=== PATIENT | female | born 1950 | race Caucasian/White ===

== ENCOUNTER → 2018-08-06 | Outpatient (CLI) | payer MEDICARE ==
[~2018-08-06] MED LIST: AMIT25TA9 PO; BACL10TA PO; CALC-877 PO; FLUO20CA30 PO; MULT-1205 PO; PROP20TA7 PO; VITA1CAP20 PO; WARF1TAB83 PO; WARF5TAB76 PO
[2018-08-06 09:22] LABS: BASOPHILS % (AUTO) 0.4 % (0.0-5.0); EOSINOPHILS % (AUTO) 2.6 % (0.0-8.0); HEMATOCRIT 33.1 % (36-48); LYMPHOCYTES % (AUTO) 26.2 % (21.0-51.0); MEAN CORPUSCULAR HEMOGLOBIN 26.8 pg (27.0-33.0); MEAN CORPUSCULAR HGB CONC 32.2 g/dL (32.0-36.0); MEAN CORPUSCULAR VOLUME 83.3 fL (79-99); MONOCYTES % (AUTO) 11.9 % (3.0-13.0); NEUTROPHILS % (AUTO) 58.9 % (40.0-77.0); PLATELET COUNT (AUTO) 137 K/uL (130-400); RED BLOOD CELL COUNT(AUTO) 3.98 MIL/uL (4.00-5.50); RED CELL DISTRIBUTION WIDTH 16.5 % (11.0-15.5); WHITE BLOOD COUNT (AUTO) 4.1 K/uL (4.8-10.8)
[2018-08-06 09:39] LABS: ALBUMIN 3.3 g/dL (3.5-5.0); BILIRUBIN,TOTAL 0.9 mg/dL (0.2-1.0); CREATININE 0.6 mg/dL (0.5-1.5); POTASSIUM 3.7 mmol/L (3.5-5.1); TOTAL PROTEIN, SERUM 7.1 g/dL (6.0-8.3)
[2018-08-06 09:52] LABS: INR 1.09 (0.85-1.15); PROTHROMBIN TIME 11.4 SEC (9.6-11.6)
== END | disposition home or self-care (01) ==
LOC: RAH 08:23
PROVIDERS: ATTEND Internal Medicine Gastroenterology
DX: K74.69 Other cirrhosis of liver (principal); I85.00 Esophageal varices without bleeding; Z90.49 Acquired absence of other specified parts of digestive tract
CPT/HCPCS: 36415; 76700; 80053; 82172; 82247; 82977; 83010; 83516; 83883; 84460; 85025; 85610; 86038; 86255; 93975

== ENCOUNTER 2018-08-07 05:36 | Day surgery (SDC) | payer MEDICARE ==
[~2018-08-07] VITALS: Ht 154.9 cm; Wt 80.8 kg
[2018-08-07] MEDS ORDERED: SODIUM CHLORIDE 0.9% 1000ML 1,000 ML IV ONE (05:46)
[2018-08-07 06:33] LABS: INR 1.13 (0.85-1.15); PROTHROMBIN TIME 11.8 SEC (9.6-11.6)
[2018-08-07 06:36] VITALS: BP 141/63
[2018-08-07] MEDS ORDERED: MULT-1205 PO (06:49)
[2018-08-07] MEDS ORDERED: WARF5TAB76 PO (06:49)
[2018-08-07] MEDS ORDERED: BACL10TA PO (06:49)
[2018-08-07] MEDS ORDERED: VITA1CAP20 PO (06:49)
[2018-08-07] MEDS ORDERED: WARF1TAB83 PO (06:49)
[2018-08-07] MEDS ORDERED: CALC-877 PO (06:49)
[2018-08-07] MEDS ORDERED: PROP20TA7 PO (06:49)
[2018-08-07] MEDS ORDERED: AMIT25TA9 PO (06:49)
[2018-08-07] MEDS ORDERED: FLUO20CA30 PO (06:49)
[2018-08-07] MEDS ORDERED: PROPOFOL 10 MG/ML 20ML VIAL IV ONE ×2 (07:39)
[2018-08-07 08:10] VITALS: BP 129/61
[2018-08-07 08:15] VITALS: BP 153/75
[2018-08-07 08:20] VITALS: BP 145/72
[2018-08-07 08:25] VITALS: BP 138/72
== END 2018-08-07 08:35 | disposition home or self-care (01) ==
LOC: DAH 05:36 → ENDO 05:36
PROVIDERS: ATTEND Internal Medicine
DX: Z12.11 Encounter for screening for malignant neoplasm of colon (principal); K63.5 Polyp of colon; K57.30 Diverticulosis of large intestine without perforation or abscess without bleeding; K64.1 Second degree hemorrhoids; K64.4 Residual hemorrhoidal skin tags; K74.60 Unspecified cirrhosis of liver; Z98.0 Intestinal bypass and anastomosis status; I85.10 Secondary esophageal varices without bleeding; K31.89 Other diseases of stomach and duodenum; I10 Essential (primary) hypertension; E11.9 Type 2 diabetes mellitus without complications; D64.9 Anemia, unspecified; Z98.890 Other specified postprocedural states; Z68.35 Body mass index [BMI] 35.0-35.9, adult; Z79.84 Long term (current) use of oral hypoglycemic drugs; Z79.01 Long term (current) use of anticoagulants; Z98.49 Cataract extraction status, unspecified eye; Z80.0 Family history of malignant neoplasm of digestive organs
CPT/HCPCS: 36415; 43244; 45380; 82948 ×2; 85610; 88305; 93005; A4606; J2704 ×2; J7030

== ENCOUNTER 2018-09-04 08:16 | Day surgery (SDC) | payer MEDICARE ==
[~2018-09-04] VITALS: Ht 154.9 cm; Wt 82.1 kg
[~2018-09-04 08:16] MED LIST changes: +SODIUM CHLORIDE 0.9% 1000ML 1,000 ML IV ONE
[2018-09-04 08:28] VITALS: BP 130/51
[2018-09-04] MEDS ORDERED: PROPOFOL 10 MG/ML 20ML VIAL IV ONE ×2 (08:57)
[2018-09-04] MEDS ORDERED: MIDAZOLAM HCL 1 MG/ML 2ML VIAL ONE (08:57)
[2018-09-04 09:10] VITALS: BP 141/64
[2018-09-04 09:15] VITALS: BP 140/62
[2018-09-04 09:20] VITALS: BP 146/60
[2018-09-04 09:25] VITALS: BP 145/58
[2018-09-04 09:38] VITALS: BP 142/57
== END 2018-09-04 09:47 | disposition home or self-care (01) ==
LOC: ENDO 08:16 → DAH 08:16 → ENDO 09:47
PROVIDERS: ATTEND Internal Medicine
DX: I85.10 Secondary esophageal varices without bleeding (principal); K31.89 Other diseases of stomach and duodenum; K74.60 Unspecified cirrhosis of liver; Z98.84 Bariatric surgery status; Z68.34 Body mass index [BMI] 34.0-34.9, adult; I10 Essential (primary) hypertension; E11.9 Type 2 diabetes mellitus without complications; D64.9 Anemia, unspecified; K55.069 Acute infarction of intestine, part and extent unspecified; Z98.890 Other specified postprocedural states; Z98.49 Cataract extraction status, unspecified eye; Z79.899 Other long term (current) drug therapy; E78.2 Mixed hyperlipidemia
CPT/HCPCS: 43244; 82948 ×2; A4606; J2250; J2704 ×2; J7030